=== PATIENT | male | born 1965 | race Hispanic/Latino ===

== ENCOUNTER 2020-12-20 04:15 | Emergency (ER) | payer MEDICARE ==
[~2020-12-20] VITALS: Ht 170.2 cm; Wt 103.9 kg
[2020-12-20 04:20] VITALS: BP 161/99
== END 2020-12-20 04:41 ==
LOC: EDH 04:15
DX: Z02.83 Encounter for blood-alcohol and blood-drug test (principal)

== ENCOUNTER 2021-05-09 07:41 | Emergency (ER) | payer MEDICARE ==
[~2021-05-09] VITALS: Ht 170.2 cm; Wt 105.2 kg
[2021-05-09] MEDS ORDERED: GUAIFENESIN-CODEINE 5 ML SYRUP PO SCH (08:30)
[2021-05-09] MEDS ORDERED: ACETAMINOPHEN 500 MG TABLET PO SCH (08:30)
[2021-05-09] MEDS ORDERED: DEXAMETHASONE SOD PHOSPHATE 4 MG/ML 1ML VIAL IM SCH (08:30)
[2021-05-09] MEDS ORDERED: GUAI5SYR4 PO (09:20)
[2021-05-09] MEDS ORDERED: TRAM100T40 PO (09:20)
[2021-05-09] MEDS ORDERED: METH4TAB3 PO (09:20)
[2021-05-09 09:36] VITALS: BP 127/80
== END 2021-05-09 09:44 | disposition home or self-care (01) ==
LOC: EDH 07:41
DX: U07.1 COVID-19 (principal); E11.9 Type 2 diabetes mellitus without complications; I10 Essential (primary) hypertension; Z79.52 Long term (current) use of systemic steroids
CPT/HCPCS: 71045; 87635; 87804 ×2; 96372; 99284; C9803; J1100

== ENCOUNTER 2021-05-14 04:06 | Emergency (ER) | payer MEDICARE ==
[~2021-05-14] VITALS: Ht 167.6 cm; Wt 105.2 kg
[~2021-05-14 04:06] MED LIST: GUAI5SYR4 PO; METH4TAB3 PO; TRAM100T40 PO
[2021-05-14] MEDS ORDERED: ACETAMINOPHEN 500 MG TABLET ONE (06:02)
[2021-05-14 06:10] VITALS: BP 136/91
[2021-05-14] MEDS ORDERED: ACETAMINOPHEN 500 MG TABLET PO ONE (06:30)
== END 2021-05-14 08:24 | disposition left against medical advice (07) ==
LOC: EDH 04:06
DX: R06.02 Shortness of breath (principal); Z20.822 Contact with and (suspected) exposure to COVID-19; Z53.21 Procedure and treatment not carried out due to patient leaving prior to being seen by health care provider
CPT/HCPCS: 87635; C9803

== ENCOUNTER 2025-02-22 07:55 | Emergency (ER) | payer MEDICARE ==
[~2025-02-22] VITALS: Ht 172.7 cm; Wt 63.5 kg
[~2025-02-22 07:55] MED LIST changes: +AEC81 PO; +ATOR40TA69 PO; +BACL10TA PO; +CANA300T PO; +CLOP75TA32 PO; -GUAI5SYR4 PO; +LISI10TA24 PO; +METF-446 PO; -METH4TAB3 PO; +METO-391 PO; +Nitroglycerin 0.4MG Sl Tab SL; -TRAM100T40 PO
[2025-02-22 08:18] LABS: IMMATURE GRANULOCYTE ABSOLUTE 0.02 K/uL (0-1); NUCLEATED RED BLOOD CELLS 0.0 % (0.0-0.19); PLATELET COUNT (AUTO) 241 K/uL (130-400); RED BLOOD CELL COUNT(AUTO) 5.01 MIL/uL (4.50-6.20); RED CELL DISTRIBUTION WIDTH 13.5 % (11.0-15.5); WHITE BLOOD COUNT (AUTO) 9.1 K/uL (4.8-10.8)
[2025-02-22 08:36] LABS: CREATINE KINASE, TOTAL 135.0 U/L (21-232); CREATININE 0.9 mg/dL (0.5-1.3); GLOMERULAR FILTR. RATE CALC 97.0 mL/min (>90); GLUCOSE,RANDOM 156.0 mg/dL (70-105); SODIUM SERUM 139.0 mmol/L (136-145); UREA NITROGEN, BLOOD 8.0 mg/dL (7-18)
--- NOTE | 2025-02-22 09:30 | HMCIMG ---
EXAM: CR Chest, 1 View. CLINICAL HISTORY: CP, cough COMPARISON: None provided. FINDINGS: LUNGS: There is no mass, infiltrate, or acute pulmonary abnormality. PLEURAL SPACES: No pleural effusion or pneumothorax. MEDIASTINUM: Mild cardiomegaly. Mild central pulmonary vascular congestion. BONES: No aggressive appearing osseous lesion seen. IMPRESSION: 1. Mild cardiomegaly with mild central pulmonary vascular congestion. 2. No acute cardiopulmonary findings. /[place]
[2025-02-22 09:35] VITALS: PULSE 88; RESP 21
--- NOTE | 2025-02-22 09:41 | ERN ---
General Chief Complaint: Abdominal Pain Stated Complaint: LUQ PAIN, COUGH Time Seen by MD: 08:33 History of Present Illness Initial Comments 59-year-old male with a past medical history of hypertension, diabetes mellitus, myocardial infarction with a stent placement 3 years ago, smoking and incisional hernia presented with chief complaint of left upper abdominal pain which started this morning after he was coughing vigorously for 5 days. Abdominal pain was acute in onset and started after some popping sound felt in his left upper abdomen. He notes abdominal pain getting worse with coughing with no any relieving factor. He did not complain of nausea, vomiting, diarrhea, constipation, fever, shortness of breath. No recent abdominal trauma. Allergies: Coded Allergies: No Known Drug Allergies (Unverified Allergy, Unknown, 12/20/20) Home Meds Active Scripts Hydrocodone/Acetaminophen (Hydrocodon-Acetaminophen 5-325) 5 Mg-325 Mg Tablet, 1 TAB PO TIDP PRN for pain for 5 Days, #15 TAB 0 Refills Prov:AMADO GRADY DO 02/22/25 Albuterol Sulfate (Ventolin Hfa) 90 Mcg Hfa.aer.ad, 2 PUFF IH Q4HPRN PRN for wheezing for 30 Days, #18 GM 0 Refills Prov:DANIAL CONROY MD 02/22/25 Benzonatate (Tessalon Perles) 100 Mg Cap, 1 CAP PO TID for cough for 10 Days, #30 CAP 0 Refills Prov:DANIAL CONROY MD 02/22/25 Lidocaine (Lidocaine Pain Relief) 4 % Adh..patch, 1 PATCH TP DAILY for 10 Days, #10 PATCH 0 Refills Apply on the left upper abdominal wall Prov:DANIAL CONROY MD 02/22/25 Canagliflozin (Invokana) 300 Mg Tablet, 300 MG PO DAILY for 30 Days, #30 TAB 0 Refills Prov:STEPHANE HAUSER MD 04/19/22 Metformin HCl (Metformin HCl) 1,000 Mg Tablet, 1000 MG PO BID for 30 Days, #60 TAB 0 Refills Prov:STEPHANE HAUSER MD 04/19/22 Metoprolol Succinate (Metoprolol Succinate) 50 Mg Tab.er.24h, 50 MG PO DAILY for 90 Days, #90 TAB 3 Refills Prov:OSCAR ADAMS MD 04/19/22 Lisinopril (Lisinopril) 10 Mg Tablet, 10 MG PO DAILY for 90 Days, #90 TAB 3 Refills Prov:OSCAR ADAMS MD 04/19/22 [Nitroglycerin 0.4MG Sl Tab] 0.4 MG TAB.SUBL No Conflict Check, 0.4 MG SL PROTOCOL PRN for CHEST PAIN, #25 1 Refill take 1 tab sublingual Q 5min x3 PRN chest pain, if chest pain no resolved after 3 tabs, report to Emergency department Prov:OSCAR ADAMS MD 04/19/22 Atorvastatin Calcium (LIPITOR) 40 Mg Tablet, 80 MG PO HS, #90 TAB 3 Refills Prov:OSCAR ADAMS MD 04/19/22 Clopidogrel Bisulfate (Clopidogrel) 75 Mg Tablet, 75 MG PO DAILY, #90 TAB 3 Refills Prov:OSCAR ADAMS MD 04/19/22 Aspirin (ASPIRIN 81 MG ECTAB) 81 Mg Ectab, 81 MG PO DAILY, #90 TAB.EC 3 Refills Prov:OSCAR ADAMS MD 04/19/22 Reported Medications Aspirin (ASPIRIN 81 MG ECTAB) 81 Mg Ectab, 81 MG PO DAILY, TAB.EC 04/17/22 Baclofen (Baclofen) 10 Mg Tablet, 10 MG PO TID, TAB 04/17/22 Past Medical History Past Medical History: Diabetes-Type II, High Cholesterol, Heart Disease, Hypertension, Unknown (Incisional Hernia), Other (Incisional Hernia) Medical History Other: BACK PAIN Past Surgical History: Unknown Surgical History Other: ABD SURGERY, NECK SURGERY, HEARTSTENT Social History Social History: ETOH, Lives with family ROS Dictation CONSTITUTIONAL: No chills, no fever, no weakness, no diaphoresis, no malaise. HEAD/FACE: No signs of trauma. EENT: No eye pain, no blurred vision, no tearing, no double vision, no ear pain, no ear discharge, no nose pain, no nasal congestion, no throat pain, no throat swelling, no mouth pain. RESPIRATORY: cough, shortness of breath present CARDIOVASCULAR: No chest pain, no edema, no palpitations, no syncope. GASTROINTESTINAL/ABDOMINAL: Left upper quadrant abdominal pain, nausea, vomiting, constipation, diarrhea. GENITOURINARY: No abnormal discharge, no dysuria, no frequent urination, no hematuria. No complaints of pain in the genitals. MUSCULOSKELETAL: No back pain, no gout, no joint pain, no joint swelling, no muscle pain, no muscle stiffness, no neck pain. INTEGUMENTARY: No change in color, no change in hair/nails, no dryness, no lesion, no lumps, no rash. NEUROLOGICAL/PSYCH: No anxiety, not depressed, no emotional problem, no headache, no numbness, no pre-existing deficit, no history of seizures, no tremors, no weakness. HEMATOLOGIC/LYMPHATIC: Not anemic, no history of blood clots, no apparent bleeding, no bruising, glands not swollen. All Systems Negative, Except as Noted. Physical Exam Physical Exam Dictation GENERAL APPEARANCE: ALERT, ORIENTED X3,OBESE. HEAD AND FACE: NON-TRAUMATIC. EYES: PERRL, PINK CONJUNCTIVAS, EYELID NO TRAUMA, ANTERIOR CHAMBER CLEAR. EARS: PINNAS INTACT AND NO SIGNS OF TRAUMA OR ERYTHEMA. EAR CANALS CLEAR AND NO DISCHARGE. TMS NO ERYTHEMA. NOSE: NO DISCHARGE, NO BLEEDING. OROPHARYNX: MOUTH NORMAL, PHARYNX CLEAR, NO ERYTHEMA. TONSILS NO EXUDATES, NO ABSCESSES NOTED. MUCOUS MEMBRANE MOIST. NECK: SUPPLE, NON-TENDER, NO THYROMEGALY, NO MASSES, NO JVD, NO BRUITS. CHEST: NO TENDERNESS, PARADOXICAL MOVEMENT LUNGS: BILATERAL DIFFUSE WHEEZES PRESENT HEART: REGULAR RATE, REGULAR RHYTHM, NO MURMUR, NO GALLOPS. VASCULAR: NO PERIPHERAL EDEMA. ABDOMEN: INSPECTION, MIDLINE INCISIONAL SCAR PRESENT WITH HERNIA. ON PALPATION, LEFT UPPER QUADRANT TENDERNESS APPRECIATED WITH GUARDING. NORMAL BOWEL SOUNDS PRESENT ON AUSCULTATION RECTAL: DEFERRED. GENITAL: DEFERRED. NEUROLOGICAL: NORMAL SPEECH, GROSS MOTOR FUNCTION INTACT, GROSS SENSORY FUNCTION INTACT. MUSCULOSKELETAL: NECK NONTENDER, FULL RANGE OF MOTION, BACK NONTENDER, FULL RANGE OF MOTION. EXTREMITIES: NONTENDER, FULL RANGE OF MOTION. SKIN: COLOR PINK, DRY, NO TURGOR, NO RASH, NO LACERATIONS, NO ABRASIONS, NO CONTUSIONS. Results Laboratory and Microbiology Lab and Micro Result Laboratory Tests Test 02/22/25 08:14 02/22/25 08:35 White Blood Count 9.1 K/uL (4.8-10.8) Red Blood Count 5.01 MIL/uL (4.50-6.20) Hemoglobin 16.0 g/dL (14.0-18.0) Hematocrit 48.9 % (42-54) Mean Corpuscular Volume 97.6 fL (79-99) Mean Corpuscular Hemoglobin 31.9 pg (27.0-33.0) Mean Corpuscular Hemoglobin Concent 32.7 g/dL (32.0-36.0) Red Cell Distribution Width 13.5 % (11.0-15.5) Platelet Count 241 K/uL (130-400) Mean Platelet Volume 9.8 fL (7.5-10.5) Immature Granulocyte % (Auto) 0.2 % (0-1) Neutrophils (%) (Auto) 62.1 % (40.0-77.0) Lymphocytes (%) (Auto) 21.9 % (21.0-51.0) Monocytes (%) (Auto) 11.3 % (3.0-13.0) Eosinophils (%) (Auto) 4.0 % (0.0-8.0) Basophils (%) (Auto) 0.5 % (0.0-5.0) Neutrophils # (Auto) 5.7 K/uL (1.8-7.7) Lymphocytes # (Auto) 2.0 K/uL (1.0-4.8) Monocytes # (Auto) 1.0 K/uL (0.1-1.0) Eosinophils # (Auto) 0.37 K/uL (0.00-0.70) Basophils # (Auto) 0.05 K/uL (0.00-0.20) Absolute Immature Granulocyte (auto 0.02 K/uL (0-1) Nucleated Red Blood Cells 0.0 % (0.0-0.19) Sodium Level 139 mmol/L (136-145) Potassium Level 4.4 mmol/L (3.5-5.1) Chloride Level 103 mmol/L (101-111) Carbon Dioxide Level 28 mmol/L (21-32) Blood Urea Nitrogen 8 mg/dL (7-18) Creatinine 0.9 mg/dL (0.5-1.3) Glomerular Filtration Rate Calc 97 mL/min (>90) Random Glucose 156 mg/dL (70-105) H Total Calcium 9.1 mg/dL (8.5-10.1) Total Creatine Kinase 135 U/L (21-232) # Troponin I High Sensitivity 8.8 ng/L (4-75) Lipase 29 U/L (16-77) SARS-CoV-2 Antigen (Rapid) PRESUMPTIVE NEGATIVE MDM 59-year-old male with a past medical history of hypertension, diabetes mellitus, myocardial infarction with a stent placement 3 years ago, smoking and incisional hernia presented with chief complaint of left upper abdominal pain which started this morning after he was coughing vigorously for 5 days. Abdominal pain was acute in onset and started after some popping sound felt in his left upper abdomen. He notes abdominal pain getting worse with coughing with no any relieving factor. Vitals on presentation, blood pressure 189/101, pulse 100, respiratory rate 20, temperature 98.4, saturation 95% in room air. Labs was unremarkable for CBC, BMP, lipase, troponin, COVID screening. Chest x-ray revealed no acute cardiopulmonary findings with mild cardiomegaly with mild pulmonary vascular condition CT abdomen pelvis with contrast revealed no acute intra abdominal or pelvic pathology. Pleural thickening in the right lower lobe measuring up to 13 mm The patient was given breathing treatment with DuoNeb, Toradol and morphine for abdominal pain. He felt his pain is relieved. With unremarkable labs, abdominal pain seems to be more likely because of musculoskeletal pain because of vigorous cough. He is stable enough to be discharged to continue the home medications including for diabetes and hypertension. He is prescribed lidocaine patch, Tessalon prl , albuterol inhaler and [place] on discharge. NS to follow up to PCP in 3 days and to pulmonology in 1-2 weeks. ED Course Orders Procedure Category Date Status Time Covid19 (Sars Antigen LAB 02/22/25 Complete Rapid) 08:01 12 Lead Ekg Tracing- EKG 02/22/25 Complete Technical 08:01 Cardiac Panel LAB 02/22/25 Complete 08:01 Cbc With Differential LAB 02/22/25 Complete 08:01 Basic Metabolic Panel LAB 02/22/25 Complete 08:01 Chest 1vw RAD 02/22/25 Resulted 08:02 Ketorolac PHA 02/22/25 Complete Tromethamine 15mg/Ml 09:00 Ct Abdomen/Pelvis CT 02/22/25 Resulted W/Contrast 09:01 Ipratropium/Albuterol PHA 02/22/25 Complete Neb (Duoneb) 09:30 Lipase LAB 02/22/25 Complete 09:43 Iohexol (Omnipaque) PHA 02/22/25 Complete 10:26 Morphine 2mg Syg PHA 02/22/25 Complete (Morphine 2mg Syg) 10:30 Current Medications Medications (Trade) Dose Ordered Sig/Rakesh Route PRN Reason Start Time Stop Time Status Last Admin Dose Admin Albuterol (DUOneb) 1 udvial ONCE ONCE IH 02/22/25 09:30 02/22/25 09:31 DC 02/22/25 09:38 Iohexol (Omnipaque) 75 ml STK-MED ONCE IV 02/22/25 10:26 02/22/25 10:27 DC Ketorolac Tromethamine (toRADol) 15 mg ONCE ONCE IV 02/22/25 09:00 02/22/25 09:02 DC 02/22/25 09:05 Morphine Sulfate (morPHINE 2MG SYG) 2 mg ONCE ONCE IVP 02/22/25 10:30 02/22/25 10:31 DC 02/22/25 11:05 Vital Signs Date Time Temp Pulse Resp B/P (MAP) Pulse Ox O2 Delivery O2 Flow Rate FiO2 02/22/25 12:09 98.1 83 20 158/92 96 Room Air* 0 21 02/22/25 10:30 98.1 85 22 160/95 95 Room Air* 0 21 02/22/25 09:35 88 21 02/22/25 09:29 98.1 87 22 163/99 Room Air* 0 21 02/22/25 07:56 98.4 100 20 189/101 95 Room Air 0 DX & DISP Disposition: Discharge Departure Impression: Primary Impression: Abdominal wall pain in left upper quadrant Ruled Out: Acute inferior myocardial infarction, COVID-19, STEMI (ST elevation myocardial infarction) Critical Time: 30 minutes Condition: Stable Scripts Hydrocodone/Acetaminophen (Hydrocodon-Acetaminophen 5-325) 5 Mg-325 Mg Tablet 1 TAB PO TIDP PRN for pain for 5 Days, #15 TAB 0 Refills Prov: AMADO GRADY DO 02/22/25 Albuterol Sulfate (Ventolin Hfa) 90 Mcg Hfa.aer.ad 2 PUFF IH Q4HPRN PRN for wheezing for 30 Days, #18 GM 0 Refills Prov: DANIAL CONROY MD 02/22/25 Benzonatate (Tessalon Perles) 100 Mg Cap 1 CAP PO TID for cough for 10 Days, #30 CAP 0 Refills Prov: DANIAL CONROY MD 02/22/25 Lidocaine (Lidocaine Pain Relief) 4 % Adh..patch 1 PATCH TP DAILY for 10 Days, #10 PATCH 0 Refills Apply on the left upper abdominal wall Prov: DANIAL CONROY MD 02/22/25 Additional Instructions: -Continue albuterol inhaler 2 puff every 4 hour as required. -Continue Tessalon Perles 100 mg capsule 3 times a day for 10 days. -Apply lidocaine patch on the left upper abdomen for the pain. 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 Referrals: SELF,REFERRAL (PCP) ATTESTATION BY PHYSICIAN I have seen and examined the patient. I reviewed the documentation, medical decision making, and treatment plan as noted by the resident provider above. I agree with the findings and plan of care. Amado Grady SUNIL MD Feb 22, 2025 09:41 AMADO GRADY DO Feb 22, 2025 11:54
--- NOTE | 2025-02-22 10:01 | EKG ---
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 Requested By: ASA BARHNART Order Number: [id number] Reading MD: Alesha Wesley Measurements Intervals [place] Rate: 97 P: 11 DE: 145 QRS: 48 QRSD: 97 T: 17 QT: 345 QTc: 438 Interpretive Statements Sinus rhythm Probable left atrial enlargement Inferior infarct, old Compared to ECG 04/17/2022 05:48:48 Sinus tachycardia no longer present Ventricular premature complex(es) no longer present Short DE interval no longer present T-wave abnormality no longer present Possible ischemia no longer present Myocardial infarct finding still present Electronically Signed On 02-22-2025 20:14:19 CDT by Alesha Wesley Please click the below link to view image of tracing.
[2025-02-22] MEDS ORDERED: IOHEXOL-350 75 ML VIAL IV ONE (10:26)
--- NOTE | 2025-02-22 11:13 | HMCIMG ---
EXAM: CT Abdomen and Pelvis with IV contrast CLINICAL HISTORY: Abdominal pain TECHNIQUE: Axial computed tomography images of the abdomen and pelvis with intravenous contrast. CONTRAST: with intravenous contrast. COMPARISON: None provided. FINDINGS: LUNG BASES: Pleural thickening in the medial basal segment of right lower lobes maximum thickness of 13 mm. No pleural effusions are seen. LIVER: Unremarkable. GALLBLADDER AND BILE DUCTS: The gallbladder appears within normal limits. No radioopaque gallstones are seen. No biliary ductal dilatation is evident. PANCREAS: Unremarkable. SPLEEN: Unremarkable. ADRENAL GLANDS: Unremarkable. KIDNEYS, URETERS, AND BLADDER: Simple cortical cyst at upper pole of right kidney measuring 7.7 mm. Minimal bilateral perinephric fat stranding. There is no hydronephrosis or hydroureter. No urinary calculi are seen. Normal excretion of contrast in both kidneys. STOMACH AND BOWEL: Unremarkable appearance of the stomach and bowel. No evidence of bowel obstruction. No evidence suggesting enteritis or colitis. APPENDIX: No evidence of acute appendicitis on CT examination. PERITONEUM: No free fluid. No free air. LYMPH NODES: No lymphadenopathy is evident. REPRODUCTIVE: Unremarkable as visualized. VASCULATURE: No evidence of abdominal aortic aneurysm. Atherocalcific changes in the abdominal aorta and its major branches. BONES AND SOFT TISSUE: No aggressive appearing osseous lesion. No acute osseous pathology evident. Mild to moderate multilevel degenerative changes in the visualized spine. Small umbilical hernia with fat within. IMPRESSION: 1. No acute intraabdominal or pelvic pathology. 2. Pleural thickening in the right lower lobe, measuring up to 13 mm. 3. Small umbilical hernia containing fat. /[place]
[2025-02-22] MEDS ORDERED: HYDR-4060 PO ×2 (11:38→12:42)
[2025-02-22 12:09] VITALS: BP 158/92; PULSE 83; RESP 20; TEMP 98; O2SAT 96
[2025-02-22] MEDS ORDERED: LIDO1ADH71 TP (12:24)
[2025-02-22] MEDS ORDERED: ALBU18HF7 IH (12:24)
[2025-02-22] MEDS ORDERED: BENZ-39 PO (12:24)
== END 2025-02-22 13:02 | disposition home or self-care (01) ==
LOC: EDH 07:55
DX: R10.12 Left upper quadrant pain (principal); R05.9 Cough, unspecified; E11.9 Type 2 diabetes mellitus without complications; E78.00 Pure hypercholesterolemia, unspecified; I11.9 Hypertensive heart disease without heart failure; I21.9 Acute myocardial infarction, unspecified; I25.2 Old myocardial infarction; Z79.02 Long term (current) use of antithrombotics/antiplatelets; Z79.82 Long term (current) use of aspirin; Z79.84 Long term (current) use of oral hypoglycemic drugs; Z87.891 Personal history of nicotine dependence; Z79.899 Other long term (current) drug therapy; Z20.822 Contact with and (suspected) exposure to COVID-19
CPT/HCPCS: 99285; 74177; 96374; 71045; 96375; 87426; 82550; 84484; 80048; 83690; 85025; 36415; 93005; 94640; J1885; J2270; Q9967